=== PATIENT | male | born 1950 | race Caucasian/White ===

== ENCOUNTER → 2016-04-24 | Outpatient (CLI) | payer OTHER, MEDICARE ==
[~2016-04-24] MED LIST: ALFU1TAB2 PO; ALLO100T PO; ASPCH81X PO; B-CO-25 PO; CARV12.52 PO; CARV6.252 PO; CHOL2000 PO; CYAN100020 PO; MULT-845 PO; PRLSR20 PO; ZANTAC PO
[2016-04-24 12:59] LABS: BASO % 0.8 %; BASO ABS # 0.03 K/uL (0-0.2); EOS % 3.6 %; HEMATOCRIT 40.4 % (42-52); IG% 0.3 %; LYMPH % 28.3 %; LYMPH ABS # 1.09 K/uL (1.2-3.4); MEAN CELL VOLUME 84.3 fL (80-100); MEAN CORPUSCULAR HEMOGLOBIN 26.7 pg (25-34); MEAN CORPUSCULAR HGB CONC 31.7 g/dl (32-36); MEAN PLATELET VOLUME 9.7 fL (7.4-10.4); MONO % 9.9 %; NEUT % 57.1 %; PLATELET COUNT 195 K/uL (130-400); RED BLOOD COUNT 4.79 M/uL (4.7-6.1); WHITE BLOOD COUNT 3.85 K/uL (4.8-10.8)
[2016-04-24 13:19] LABS: FERRITIN 11.9 ng/ml (8.0-388.0)
[2016-04-24 15:48] LABS: COMPLETE YES
== END | disposition home or self-care (01) ==
LOC: C.LAB 11:56
PROVIDERS: ATTEND Internal Medicine Hematology & Oncology
DX: D63.8 Anemia in other chronic diseases classified elsewhere (principal)

== ENCOUNTER → 2016-05-02 | Outpatient (CLI) | payer OTHER, MEDICARE ==
[~2016-05-02] MED LIST changes: +OPTIRAY 320 IV PRN
--- NOTE | 2016-05-02 14:17 | DIAGNOSTIC IMAGING REPORT ---
CT SCAN OF THE NECK WITH IV CONTRAST CLINICAL HISTORY: Cervical lymphadenopathy. COMPARISON STUDY: CT scan of the neck dated 07/10/2015. TECHNIQUE: Following the IV administration of 110 cc of Optiray 320, CT scan of the soft tissues of the neck was performed from the skull base to the upper chest. Images are reviewed in the axial, sagittal, and coronal planes. IV contrast was administered without complication. CT DOSE: 593.31 mGy.cm FINDINGS: Pharynx: The nasopharynx, oropharynx, and laryngeal pharynx are normal in appearance. The pharyngeal airway is widely patent. There is no evidence of mass lesion. The vocal cords are symmetric. The parapharyngeal fat is well maintained. The prevertebral/retropharyngeal soft tissues are within normal limits. The epiglottis is normal. Calcified tonsilliths are incidentally noted. Lymphadenopathy: A cutaneous marker has been placed in the left posterior cervical region. This overlies the sternocleidomastoid muscle. No cervical lymphadenopathy is identified. Thyroid: Normal in size and attenuation. Salivary glands: The parotid and submandibular glands are within normal limits. Brain parenchyma: The visualized brain parenchyma at the skull base is normal in appearance. Megacisterna magna is incidentally noted. Vascular structures: The carotid arteries and jugular veins are widely patent bilaterally. Atherosclerotic calcification is noted in the carotid bulbs. Skeletal structures: The skeletal structures are osteopenic. Imaged portions of the calvarium at the skull base are within normal limits. The cervical spine appears intact noting spondylotic change. Orbits: The bony orbits are intact. Mild proptosis is suspected. Orbital contents are otherwise normal in appearance. Sinuses and mastoids: Trace mucosal thickening is seen within the maxillary antra. The remaining paranasal sinuses and the mastoid air cells are clear. Lung apices: Emphysematous change is present in the upper lobes. The imaged upper lobe lung parenchyma is otherwise clear. IMPRESSION: 1. No abnormality is identified in the neck. 2. There is no cervical lymphadenopathy. The cutaneous marker at the site of interest overlies the left sternocleidomastoid muscle. 3. Emphysema. Electronically signed by: Gerber Rowe M.D. 05/02/2016 2:16 PM Dictated Date/Time: 05/02/2016 2:11 PM
== END | disposition home or self-care (01) ==
LOC: C.CTS 13:44
PROVIDERS: ATTEND Internal Medicine
DX: R59.0 Localized enlarged lymph nodes (principal)

== ENCOUNTER → 2016-07-30 | Outpatient (CLI) | payer OTHER, MEDICARE ==
[~2016-07-30] MED LIST changes: +CEPH500C2 PO; +HYDR-5688 PO; -OPTIRAY 320 IV PRN
[2016-07-30 13:42] LABS: BLOOD UREA NITROGEN 8 mg/dl (7-18); BUN/CREATININE RATIO 6.4 (10-20)
--- NOTE | 2016-08-06 13:49 | CODING QUERY MEDICAL NECESSITY ---
CQSUPPORTING DIAGNOSIS NEEDED A supporting diagnosis is required for the test/procedure performed on this patient in order for us to be reimbursed by the patient's insurance. Please provide a supporting diagnosis for the following test/procedure listed below next to the test name along with your signature. *If there is no additional diagnosis for this patient that would support the following test/procedure please document that below next to the test/procedure. Test(s)/Procedure(s) that require a supporting diagnosis: DOS 07/30/16 PROSTATE SPECIFIC TEST Provider Signature: Date: Thank you Mary Bazan [facility] Once completed, please kindly fax back to [phone] For questions please call [phone]
== END | disposition home or self-care (01) ==
LOC: C.LAB 11:51
PROVIDERS: ATTEND Urology
DX: N43.40 Spermatocele of epididymis, unspecified (principal); D63.8 Anemia in other chronic diseases classified elsewhere; N40.0 Benign prostatic hyperplasia without lower urinary tract symptoms

== ENCOUNTER → 2016-09-23 | Outpatient (CLI) | payer OTHER, MEDICARE ==
[~2016-09-23] MED LIST changes: -CEPH500C2 PO; -HYDR-5688 PO; +OPTIRAY 320 IV PRN
--- NOTE | 2016-09-23 11:25 | DIAGNOSTIC IMAGING REPORT ---
ABD/PELVIS IV AND ORAL CONT CLINICAL HISTORY: 66 years-old Male presenting with LOWER LT QUAD PAIN. TECHNIQUE: Multidetector CT of the abdomen and pelvis was performed after the administration of oral and intravenous contrast. IV contrast: 95 mL of Optiray 320. A dose lowering technique was used consistent with the principles of ALARA (as low as reasonably achievable). COMPARISON: None. CT DOSE (mGy.cm): The estimated cumulative dose is 409.68 mGy.cm. 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 Lung bases: Minimal dependent opacities at the right lung base, likely atelectasis. Normal heart size. Coronary artery and aortic valve calcification. No pericardial or pleural effusion. Liver: Normal morphology. No liver lesion. Patent hepatic vasculature. Biliary: No intrahepatic or extrahepatic biliary ductal dilatation. Normal gallbladder. Pancreas: Mild parenchymal atrophy. Spleen: Normal. Adrenal glands: Normal. Kidneys and ureters: Fat-containing 2.2 cm mass at the posterior aspect of the right upper pole. Extrarenal pelvises bilaterally. Multiple nonobstructing renal calculi, the largest on the right measuring 2 mm at the lower pole and on the left measuring 5 mm in the interpolar region. Ureters are nondilated. Suggestion of mild urothelial thickening bilaterally. Gastrointestinal tract: Sigmoid diverticulosis. Wall thickening of the sigmoid colon and prominence of the vasa recta could suggest chronic diverticular disease. No pericolonic inflammatory change. Normal appendix. No bowel obstruction. Peritoneal cavity: No free fluid or intraperitoneal gas. Bladder: Mild circumferential wall thickening. No perivesicular inflammatory change. Pelvic organs: Prostate enlargement likely secondary to benign prostatic hyperplasia. Vasculature: Atherosclerosis of the normal caliber abdominal aorta. IVC patent. Lymph nodes: No enlarged lymph nodes in the abdomen or pelvis. Abdominal wall: Evidence of mesh repair over the right inguinal region. No associated fluid collection or inflammatory change. Small fat-containing hernia inferior to the umbilicus and lateral to the transversalis/oblique muscles on the left (series 3 image 352). No associated fluid or inflammatory change. Musculoskeletal: Degenerative changes of the spine. Multiple rib fractures, which appear to be subacute including the right 10th through 12th ribs. IMPRESSION: 1. Evidence of left lower quadrant fat-containing ventral hernia without evidence of strangulation. 2. Chronic diverticular disease. No diverticulitis. 3. 2.2 cm fat-containing mass at the upper pole the right kidney most consistent with angiomyolipoma. 4. Bilateral nonobstructing nephrolithiasis. 5. Apparent mild urothelial thickening and mild bladder wall thickening, which can be seen in the setting of cystitis with upper tract involvement. Correlate with urinalysis. 6. Multiple subacute right rib fractures. Electronically signed by: Julian Panchal M.D. 09/23/2016 11:24 AM Dictated Date/Time: 09/23/2016 11:14 AM
== END | disposition home or self-care (01) ==
LOC: C.CTS 08:54
PROVIDERS: ATTEND Internal Medicine Hematology & Oncology
DX: K57.90 Diverticulosis of intestine, part unspecified, without perforation or abscess without bleeding (principal); N20.0 Calculus of kidney; R93.5 Abnormal findings on diagnostic imaging of other abdominal regions, including retroperitoneum; R93.41 Abnormal radiologic findings on diagnostic imaging of renal pelvis, ureter, or bladder; S22.41XA Multiple fractures of ribs, right side, initial encounter for closed fracture; X58.XXXA Exposure to other specified factors, initial encounter; D63.8 Anemia in other chronic diseases classified elsewhere

== ENCOUNTER → 2016-12-10 | Outpatient (CLI) | payer OTHER, MEDICARE ==
[~2016-12-10] MED LIST changes: -CYAN100020 PO; -OPTIRAY 320 IV PRN; -PRLSR20 PO
[2016-12-10 13:04] LABS: CHOLESTEROL/HDL RATIO 4.5
== END | disposition home or self-care (01) ==
LOC: C.LABPBG 10:44
PROVIDERS: ATTEND Internal Medicine
DX: E78.5 Hyperlipidemia, unspecified (principal)

== ENCOUNTER 2016-12-16 06:40 | Day surgery (SDC) | payer OTHER, MEDICARE ==
[2016-11-13 08:39] VITALS: BMI 25.0
--- NOTE | 2016-11-13 09:12 | PAT Medication Instructions ---
Service Date Nov 13, 2016. Current Home Medication List Alfuzosin Hcl (Alfuzosin Hcl Er), 1 TAB PO HS Allopurinol (Zyloprim), 100 MG PO HS Aspirin (Aspirin Chewable), 81 MG PO QPM B-Complex W/ Folic Acid (Super B Complex Maxi), 1 TAB PO QAM Carvedilol (Coreg), 1 TAB PO QPM Carvedilol (Coreg), 12.5 MG PO QAM Cholecalciferol (Vitamin D3), 1 CAP PO QAM Multiple Vitamins W/ Minerals (Centrum Silver Adult 50+), 1 TAB PO QAM [Zantac], 75 MG PO QAM Medication Instructions For Your Scheduled Surgery - Check with surgeon and tire molder for instructions: Aspirin (Aspirin Chewable), 81 MG PO QPM - Hold the following medications the morning of surgery: B-Complex W/ Folic Acid (Super B Complex Maxi), 1 TAB PO QAM Cholecalciferol (Vitamin D3), 1 CAP PO QAM Multiple Vitamins W/ Minerals (Centrum Silver Adult 50+), 1 TAB PO QAM [Zantac], 75 MG PO QAM - Take the following medications the morning of surgery with a sip of water: Carvedilol (Coreg), 12.5 MG PO QAM - Take the following medications as scheduled the night before surgery: Carvedilol (Coreg), 1 TAB PO QPM Allopurinol (Zyloprim), 100 MG PO HS Alfuzosin Hcl (Alfuzosin Hcl Er), 1 TAB PO HS If you have any questions please call us at [phone] or [phone] or [phone]
[2016-11-13 10:25] LABS: BASO % 0.9 %; BASO ABS # 0.03 K/uL (0-0.2); COMPLETE YES; EOS % 2.6 %; HEMATOCRIT 38.8 % (42-52); IG% 0.3 %; LYMPH % 28.4 %; LYMPH ABS # 0.97 K/uL (1.2-3.4); MEAN CELL VOLUME 85.5 fL (80-100); MEAN CORPUSCULAR HEMOGLOBIN 26.9 pg (25-34); MEAN CORPUSCULAR HGB CONC 31.4 g/dl (32-36); MEAN PLATELET VOLUME 9.4 fL (7.4-10.4); MONO % 14.1 %; NEUT % 53.7 %; PLATELET COUNT 205 K/uL (130-400); RED BLOOD COUNT 4.54 M/uL (4.7-6.1); WHITE BLOOD COUNT 3.41 K/uL (4.8-10.8)
[2016-11-13 10:28] LABS: BUN/CREATININE RATIO 4.1 (10-20); CALCIUM 8.6 mg/dl (8.5-10.1); CREATININE 1.2 mg/dl (0.60-1.40); POTASSIUM 3.6 mmol/L (3.5-5.1)
[~2016-12-16] VITALS: Ht 175.3 cm; Wt 77.3 kg
[~2016-12-16 06:40] MED LIST changes: +CEFAZOLIN 2000MG IV PUSH 10 ML IV SCH; +LACTATED RINGER'S 1000ML 1,000 ML IV SCH
[2016-12-16] MEDS ORDERED: HYDROmorphone INJ 1 MG/ML SYR IV PRN (07:00)
[2016-12-16] MEDS ORDERED: ATROPINE SULFATE 0.1 MG/ML 5ML SYR IV PRN (07:00)
[2016-12-16] MEDS ORDERED: ONDANSETRON INJ 2 MG/ML 2 ML VIAL IV PRN ×2 (07:00→10:00)
[2016-12-16] MEDS ORDERED: FENTANYL CITRATE INJ 50 MCG/1 ML 2 ML VIAL IV PRN (07:00)
[2016-12-16] MEDS ORDERED: EpHEDrine SULFATE INJ 50 MG/ML AMP IV PRN (07:00)
[2016-12-16 07:05] VITALS: BP 164/97; PULSE 74; TEMP 36.7; O2SAT 96; Ht 175.3 cm; Wt 77.3 kg
--- NOTE | 2016-12-16 07:13 | History & Physical Bridge Note ---
H&P Re-Evaluation Bridge Note: I have examined the patient, reviewed the History & Physical and in the interval since the performance of the History & Physical I have noted the following changes of clinical significance: No changes noted
[2016-12-16] MEDS ORDERED: LIDOCAINE HCL 1% 20 ML VIAL ONE (08:00)
[2016-12-16] MEDS ORDERED: BUPIVACAINE 0.5 % 5 MG/1 ML MPF 30ML VIAL ONE (08:00)
[2016-12-16] MEDS ORDERED: CEFAZOLIN SOD 1 GM VIAL ONE (08:00)
[2016-12-16] MEDS ORDERED: FENTANYL CITRATE INJ 50 MCG/1 ML 2 ML VIAL ONE (08:08)
[2016-12-16] MEDS ORDERED: MIDAZOLAM HCL 1 MG/ML 2ML VIAL ONE (08:08)
[2016-12-16] MEDS ORDERED: HYDROmorphone INJ 2 MG/ML SYR/VIAL ONE (09:00)
[2016-12-16] MEDS ORDERED: DEXAMETHASONE SOD INJ 4 MG/ML VIAL ONE (09:13)
[2016-12-16] MEDS ORDERED: LIDOCAINE HCL 2% 2 ML VIAL (20MG/ML) ONE (09:13)
[2016-12-16] MEDS ORDERED: PROPOFOL IV EMULSION 10 MG/ML 20 ML VIAL IV ONE (09:13)
[2016-12-16] MEDS ORDERED: ONDANSETRON INJ 2 MG/ML 2 ML VIAL ONE (09:13)
[2016-12-16] MEDS ORDERED: EpHEDrine SULFATE INJ 50 MG/ML AMP ONE (09:18)
--- NOTE | 2016-12-16 09:45 | [facility] Operative Report ---
Operative Report Operative Date Dec 16, 2016. Pre-Operative Diagnosis Left Inguinal Hernia Post-Operative Diagnosis Same Procedure(s) Performed Left Open Inguinal Hernia Repair with Mesh Surgeon Dr Myers Capture Manager Surgeon(s) Brennon Anaya PA-C Estimated Blood Loss 10ML Findings indirect lipoma Specimens NONE Anesthesia gen/ LMA Complication(s) None Disposition Recovery Room / PACU I attest to the content of the Intraoperative Record and any orders documented therein. Any exceptions are noted below.
[2016-12-16] MEDS ORDERED: CEPH500C2 PO (09:53)
[2016-12-16] MEDS ORDERED: HYDR-5688 PO (09:53)
[2016-12-16] MEDS ORDERED: HYDROCODONE/ACETAMOPHEN 5/325MG TAB PO PRN ×2 (10:00)
--- NOTE | 2016-12-16 10:22 | Anesthesiology Progress Note ---
Anesthesia Post Op Note Date & Time Dec 16, 2016 at 10:22 Vital Signs Pain Intensity: 0 Vital Signs Past 12 Hours Date Time Temp Pulse Resp B/P (MAP) Pulse Ox O2 Delivery O2 Flow Rate FiO2 12/16/16 10:06 142/99 12/16/16 10:06 142/99 12/16/16 10:03 83 21 12/16/16 10:03 82 21 97 12/16/16 10:03 82 21 97 12/16/16 10:03 83 21 12/16/16 10:01 143/88 12/16/16 10:01 143/88 12/16/16 09:58 87 18 98 12/16/16 09:58 87 18 12/16/16 09:58 87 18 98 12/16/16 09:58 87 18 12/16/16 09:56 153/94 12/16/16 09:56 153/94 12/16/16 09:53 88 19 12/16/16 09:53 88 19 96 12/16/16 09:53 88 19 96 12/16/16 09:53 88 19 12/16/16 09:51 140/83 12/16/16 09:51 140/83 12/16/16 09:48 86 17 147/84 96 12/16/16 09:48 86 17 147/84 96 12/16/16 09:48 86 17 12/16/16 09:48 86 17 12/16/16 09:47 36.0 84 16 147/84 97 12/16/16 09:47 36.0 84 16 147/84 (107) 97 Nasal Cannula 2 12/16/16 07:05 36.7 74 18 164/97 (119) 96 Room Air Notes Mental Status: alert / awake / arousable, participated in evaluation Pt Amnestic to Procedure: Yes Nausea / Vomiting: adequately controlled Pain: adequately controlled Airway Patency, RR, SpO2: stable & adequate BP & HR: stable & adequate Hydration State: stable & adequate Anesthetic Complications: no major complications apparent
--- NOTE | 2016-12-16 10:39 | OPERATIVE REPORT ---
DATE OF OPERATION: 12/16/2016 NAME OF OPERATION: Open left inguinal hernia repair. PREOPERATIVE DIAGNOSIS: Left inguinal hernia. POSTOPERATIVE DIAGNOSIS: Same with indirect sac and lipoma. STAFF SURGEON: Michael Myers MD LATHE TURNER: Brennon Webber PA-C ANESTHESIA: General. DESCRIPTION OF PROCEDURE: The patient was brought in the operating room and placed on the operating table in supine position. His left lower quadrant prepped and draped in usual fashion. 0.5% plain Marcaine was used to anesthetize the skin and subcutaneous tissue. Incision made parallel to the inguinal ligament, carrying dissection down identifying the external oblique fibers. These were incised along their length to the external ring, mobilizing the cord structures, identifying the ilioinguinal nerve. The cord structures were then mobilized. It was apparent the patient had an indirect lipoma with a small hernia sac. These were mobilized away from the cord structures and then reduced. A small mesh plug placed into the internal ring, secured to surrounding tissue using 2-0 Ethibond suture. A large mesh patch was then placed around the cord structures over the plug and secured using 2-0 Ethibond suture. The site was irrigated with antibiotic solution. The external oblique fibers were closed over the mesh around the cord structures and then secured using 2-0 Ethibond suture. 0.5% plain Marcaine was then used to anesthetize the deep tissue, then the subcutaneous tissue reapproximated using 2-0 plain catgut suture, then the skin reapproximated using 4-0 nylon suture and Steri-Strips. Dressing applied and patient transferred to the recovery room in stable condition. I attest to the content of the Intraoperative Record and any orders documented therein. Any exception s are noted below.
[2016-12-16 10:40] VITALS: BP 151/92; PULSE 74; TEMP 36.6; O2SAT 99
[2016-12-16 11:13] VITALS: BP 133/77; PULSE 89; O2SAT 95
[2016-12-16 11:40] VITALS: BP 151/87; PULSE 88; TEMP 36; O2SAT 95
--- NOTE | 2016-12-16 11:41 | Discharge Instructions ---
Discharge Instructions Date of Service Dec 16, 2016. Visit Reason for Visit: Left Inguinal Hernia Discharge Discharge Diagnosis / Problem: Lt inguinal hernia Discharge Goals Goal(s): Decrease discomfort, Improve function Activity Recommendations Activity Limitations: as noted below Lifting Limitations: no more than 25 pounds (for 4 weeks) Exercise/Sports Limitations: until after follow-up appointment May Resume Sexual Activity: when tolerated Shower/Bathe: keep incision dry (for 2 days- may shower over incision on Fri) Driving or Machine Use: resume 3 days after discharge SPECIAL CARE INSTRUCTIONS: * Cover incisions and change daily for comfort/drainage. * Leave steri strips in place * May use ibuprofen for pain as tolerated. * Expect some swelling and bruising. Call your doctor if: * Temperature above 101 degrees * Pain not relieved by pain medicine ordered * There is increased drainage or redness from any incision * You have any unanswered questions or concerns [phone]. FOLLOW UP VISIT: If not already scheduled, please call the office for a follow-up visit. for next week- some sutures removed OFFICE PHONE NUMBER: Dr. Myers Office Anesthesia . Post Anesthesia Instructions: If you have had General Anesthesia or IV Sedation: * Do not drive today. * Resume driving when surgeon permits. * Do not make important decisions or sign legal documents today. * Call surgeon for: 1. Temperature elevations greater than 101 degrees F. 2. Uncontrollable pain. 3. Excessive bleeding. 4. Persistent nausea and vomiting. 5. Medication intolerance (nausea, vomiting or rash). * For nausea and vomiting use only clear liquids such as: tea, soda, bouillon until nausea subsides, then gradually increase diet as tolerated. * If you have any concerns or questions, call your surgeon's office. If physician is unavailable and it is an emergency, call 911 or go to the nearest emergency room. . Diet Recommendations Recommended Home Diet: resume previous diet Procedures Procedures Performed: Left Open Inguinal Hernia Repair with Mesh Pending Studies Studies pending at discharge: no Medical Emergencies . Who to Call and When: Medical Emergencies: If at any time you feel your situation is an emergency, please call 911 immediately. . Non-Emergent Contact Non-Emergency issues call your: Primary Care Provider, Surgeon . . "Provider Documentation" section prepared by Michael Myers. .
== END 2016-12-16 11:58 | disposition home or self-care (01) ==
LOC: C.ACU 06:40
PROVIDERS: ATTEND Surgery
DX: K40.90 Unilateral inguinal hernia, without obstruction or gangrene, not specified as recurrent (principal); I25.10 Atherosclerotic heart disease of native coronary artery without angina pectoris; I10 Essential (primary) hypertension; E78.5 Hyperlipidemia, unspecified; K21.9 Gastro-esophageal reflux disease without esophagitis; N40.0 Benign prostatic hyperplasia without lower urinary tract symptoms; M10.9 Gout, unspecified; Z79.82 Long term (current) use of aspirin; Z68.25 Body mass index [BMI] 25.0-25.9, adult; Z85.46 Personal history of malignant neoplasm of prostate; Z87.891 Personal history of nicotine dependence; Z98.890 Other specified postprocedural states; Z79.899 Other long term (current) drug therapy; Z82.49 Family history of ischemic heart disease and other diseases of the circulatory system; Z83.3 Family history of diabetes mellitus; Z84.1 Family history of disorders of kidney and ureter; Z80.1 Family history of malignant neoplasm of trachea, bronchus and lung

== ENCOUNTER → 2017-01-13 | Outpatient (CLI) | payer OTHER, MEDICARE ==
[~2017-01-13] MED LIST changes: -CEFAZOLIN 2000MG IV PUSH 10 ML IV SCH; +CEPH500C2 PO; +HYDR-5688 PO; -LACTATED RINGER'S 1000ML 1,000 ML IV SCH
[2017-01-13 17:05] LABS: BASO % 0.8 %; BASO ABS # 0.04 K/uL (0-0.2); COMPLETE YES; EOS % 4.7 %; HEMATOCRIT 40.2 % (42-52); LYMPH % 25.7 %; LYMPH ABS # 1.21 K/uL (1.2-3.4); MEAN CELL VOLUME 88.2 fL (80-100); MEAN CORPUSCULAR HEMOGLOBIN 28.1 pg (25-34); MEAN CORPUSCULAR HGB CONC 31.8 g/dl (32-36); MEAN PLATELET VOLUME 10.1 fL (7.4-10.4); MONO % 13.8 %; PLATELET COUNT 225 K/uL (130-400); RED BLOOD COUNT 4.56 M/uL (4.7-6.1); WHITE BLOOD COUNT 4.71 K/uL (4.8-10.8)
[2017-01-13 17:31] LABS: ALT/SGPT 37 U/L (12-78); BLOOD UREA NITROGEN 7 mg/dl (7-18); BUN/CREATININE RATIO 5.9 (10-20); CALCIUM 8.6 mg/dl (8.5-10.1); CARBON DIOXIDE 28 mmol/L (21-32); CHLORIDE 104 mmol/L (98-107); GLUCOSE 100 mg/dl (70-99); POTASSIUM 3.4 mmol/L (3.5-5.1); SODIUM 140 mmol/L (136-145)
[2017-01-13 17:35] LABS: ALB/GLOB RATIO 1.1 (0.9-2); ALKALINE PHOSPHATASE 105 U/L (45-117); AST/SGOT 33 U/L (15-37); FERRITIN 11.5 ng/ml (8.0-388.0); TOTAL IRON BINDING CAPACITY 362 mcg/dl (250-450)
== END | disposition home or self-care (01) ==
LOC: C.LABPBG 13:45
PROVIDERS: ATTEND Family Medicine
DX: D63.8 Anemia in other chronic diseases classified elsewhere (principal)

== ENCOUNTER → 2017-01-29 | Outpatient (CLI) | payer OTHER, MEDICARE | END | disposition home or self-care (01) | LOC: C.PATHSPEC 17:34 | PROVIDERS: ATTEND Urology | DX: N40.0 Benign prostatic hyperplasia without lower urinary tract symptoms (principal); C61 Malignant neoplasm of prostate ==

== ENCOUNTER → 2017-04-29 | Outpatient (CLI) | payer OTHER, MEDICARE ==
[2017-04-29 17:48] LABS: BASO % 1.2 %; BASO ABS # 0.05 K/uL (0-0.2); EOS % 2.8 %; EOS ABS # 0.12 K/uL (0-0.5); HEMOGLOBIN 16.1 g/dL (14.0-18.0); IG# 0.01 K/uL (0.00-0.02); LYMPH % 26.7 %; LYMPH ABS # 1.15 K/uL (1.2-3.4); MEAN CELL VOLUME 96.6 fL (80-100); MEAN CORPUSCULAR HEMOGLOBIN 32.4 pg (25-34); MEAN CORPUSCULAR HGB CONC 33.5 g/dl (32-36); MEAN PLATELET VOLUME 10.1 fL (7.4-10.4); MONO % 10.7 %; MONO ABS # 0.46 K/uL (0.11-0.59); NEUT % 58.4 %; NEUT ABS # 2.52 K/uL (1.4-6.5); PLATELET COUNT 195 K/uL (130-400); RED CELL DISTRIBUTION WIDTH CV 14.1 % (11.5-14.5); RED CELL DISTRIBUTION WIDTH SD 49.7 fL (36.4-46.3); WHITE BLOOD COUNT 4.31 K/uL (4.8-10.8)
[2017-04-29 18:30] LABS: ALBUMIN 3.6 gm/dl (3.4-5.0); ALT/SGPT 51 U/L (12-78); AST/SGOT 62 U/L (15-37); BLOOD UREA NITROGEN 7 mg/dl (7-18); CALCIUM 9.1 mg/dl (8.5-10.1); CARBON DIOXIDE 29 mmol/L (21-32); CREATININE 1.23 mg/dl (0.60-1.40); GLUCOSE 98 mg/dl (70-99); POTASSIUM 4.1 mmol/L (3.5-5.1); SODIUM 139 mmol/L (136-145)
[2017-04-29 18:33] LABS: ALKALINE PHOSPHATASE 113 U/L (45-117); TOTAL PROTEIN 6.6 gm/dl (6.4-8.2)
== END | disposition home or self-care (01) ==
LOC: C.LABPBG 12:00
PROVIDERS: ATTEND Nurse Practitioner Family
DX: R69 Illness, unspecified (principal); D63.8 Anemia in other chronic diseases classified elsewhere